=== PATIENT | female | born 1995 | race Caucasian/White ===

== ENCOUNTER 2024-02-02 15:30 | Outpatient (CLI) | payer OTHER, SELFPAY | END 2024-02-02 15:31 | disposition home or self-care (01) | PROVIDERS: Visit Provider Registered Nurse | DX: Z34.90 Encounter for supervision of normal pregnancy, unspecified, unspecified trimester (principal) | CPT/HCPCS: 86592 ==

== ENCOUNTER 2024-03-03 13:51 | Outpatient (CLI) | payer OTHER, SELFPAY ==
--- NOTE | 2024-03-03 14:00 | CRLHL7_ITS ---
For Patients: As a result of the Century Cures Act, medical imaging exams and procedure reports are released immediately into your electronic medical record. You may view this report before your referring provider. If you have questions, please contact your health care provider. INDICATION: transfer of patient care. check growth TECHNIQUE: Real time pettit scale imaging of the fetus was performed. COMPARISON: None FINDINGS: Sonographic imaging demonstrates a single living intrauterine gestation. Fetus demonstrates a regular cardiac rate of 134 beats per minute. Fetus has a vertex position. The placenta lies posteriorly without evidence of placenta previa. Amniotic fluid volume appears normal and there is a single deepest pocket of 4.2 cm. The estimated weight is 2046gm which lies at the 51st %. BPD 65th percentile. HC 11th percentile. AC is 37th percentile. FL 81st percentile. The fetus was active. Absent breathing movements. There was normal flexion and extension of the trunk and extremities. IMPRESSION: Biophysical profile 01/07. Sonographic gestational age 32 weeks 6 days and sonographic due date 04/22/2024. Good correlation with dates. Estimated weight at 51st percentile. Abdominal circumference 37th percentile. Dictated by Jeffery Taylor MD @ 03/03/2024 10:34:43 PM (Electronically Signed)
== END 2024-03-03 13:52 | disposition home or self-care (01) ==
LOC: US 13:52
PROVIDERS: Visit Provider Midwife
DX: Z36.89 Encounter for other specified antenatal screening (principal); O09.33 Supervision of pregnancy with insufficient antenatal care, third trimester; Z3A.33 33 weeks gestation of pregnancy
CPT/HCPCS: 76816; 76819

== ENCOUNTER 2024-03-31 15:01 | Outpatient (CLI) | payer OTHER, SELFPAY ==
[2024-04-01 11:56] LABS: Strep B DNA Probe POSITIVE (Negative)
[2024-04-01 12:40] LABS: Strep B Susceptibility Needed? No
== END 2024-03-31 15:02 | disposition home or self-care (01) ==
LOC: NFLDREF 15:01
PROVIDERS: Visit Provider Midwife
DX: Z34.93 Encounter for supervision of normal pregnancy, unspecified, third trimester (principal); Z3A.36 36 weeks gestation of pregnancy
CPT/HCPCS: 87081; 87653

== ENCOUNTER 2024-04-07 13:50 | Outpatient (CLI) | payer OTHER, SELFPAY ==
--- NOTE | 2024-04-07 14:00 | CRLHL7_ITS ---
For Patients: As a result of the Century Cures Act, medical imaging exams and procedure reports are released immediately into your electronic medical record. You may view this report before your referring provider. If you have questions, please contact your health care provider. ULTRASOUND OB/BPP INDICATION: screen. TECHNIQUE: OB ultrasound transabdominal. SHANTHI by LMP: 04/25/2024. GA: 37 w, 3 d. Single. Comparison: Ultrasound 03/03/2024. CERVIX: Not visualized. POSITIONING: Vertex. BIOPHYSICAL PROFILE: Total score: 8. Gross body movements: 2. tone: 2. Respiratory activity: 2. Amniotic fluid: 2. (SDP N: Increase 2 x 1 cm) PLACENTA: Technique: Transabdominal. PLACENTA POSITION: Posterior. DOPPLER: heart rate: 157 bpm. Biometry: BPD: 9.1 cm. 36 w, 5 d, 48 percent. HC: 32.8 cm. 37 w, 1 d, 22 percent. AC: 33.1 cm. 37 w, 0 d, 54 percent. FL: 7.3 cm. 37 w, 3 d, 50 percent. FL/AC ratio: 22.07 percent. HC/AC ratio: 0.99 EFW: 3117 g. Weight: 6 lbs, 14 oz. age by this US: 37 w, 1 d. SHANTHI by this US: 04/27/2024. Percentile by SHANTHI: 50 percent. IMPRESSION: 1. Single live intrauterine gestation at 37 weeks 1 day. SHANTHI of 04/27/2024. Estimated weight 3117 g which lies at the 50th percentile. 2. Biophysical profile score 8/8. Samantha Valentine M.D. Diagnostic/Breast Radiologist [email or web address] KARTHIK/Dictated by: Samantha Valentine MD @ 04/07/2024 8:26:00 PM (Electronically Signed)
== END 2024-04-07 13:51 | disposition home or self-care (01) ==
LOC: US 13:50
PROVIDERS: Visit Provider Midwife
DX: Z36.89 Encounter for other specified antenatal screening (principal); Z3A.37 37 weeks gestation of pregnancy
CPT/HCPCS: 76816; 76819

== ENCOUNTER 2024-05-01 00:51 | Inpatient (IN) | payer OTHER, SELFPAY ==
[2024-04-30 22:45] VITALS: BP 124/77; PULSE 63; RESP 16; TEMP 36.6
[2024-05-01] VITALS (66 sets, daily range): BP systolic 59–141; BP diastolic 35–79; PULSE 59–187; RESP 12–24; TEMP 36.4–37.9; O2SAT 73–100; BMI 44.6
--- NOTE | 2024-05-01 01:22 | P.LDBA_ITS ---
Subjective History of Present Illness Date Seen: 05/01/24 Narrative: Janki is a 29 yo at 40 6/7 weeks gestation being admitted to Labor and Delivery for spontaneous onset of labor. She reports her contractions started the night before last, irregular and she was able to sleep them. She was then awoken with contractions at 0430ish am. The progressively got more intense and closer together throughout the day. She was able to rest through periods of them but this afternoon they became more regular and difficult to cope with at home. She presented to triage around 2230 and was 2/40/-2. She did the labor warm up and made significant change after 2 hours. She denies any bleeding or leaking of fluid. She endorses movement. She plans to be unmedicated for as long as she can cope. She is supported in labor by her , Blair. Her full history and physical was dictated by ASHLEY Pardo on 04/07/2025. Please see this for details. Specific Issues/Plans G1 : Blair H&P completed 04/07/2024 by Mitchel RAMIREZ FOREIGN STUDENT ADVISER Transfer of care from [facility]. #GBS Positive-plans to treat # History of PCOS and infertility. Conceived with letrozole. # Recommend she continue with her daily low-dose aspirin d/t BMI and 1st . # Obesity. BMI estimated at 40.9 at start of . Offer Nutrition referral: Declines 03/10 Consider Anesthesia referral: patient declines, strongly encouraged 03/10 Weekly BPP and/or NST starting at 32 weeks: Scheduled Growth US between 32-36: 32 weeks, 51%ile testing form completed: Done Covid: Completed, not up-to-date with boosters. Recommend. Patient declines. TDAP: 02/16/2024 Labs 10/20/2023: blood type O positive, antibody screen negative, hemoglobin 13. 0, platelets 303, rubella positive, RPR:[], hepatitis B antibody negative, hepatitis-B antigen:[], HIV negative, Chlamydia gonorrhea both negative, urine culture with mixed microbiota, hepatitis-C negative, varicella positive. Pap smear 12/14/2022 ASCUS, negative HPV. Imagin09/20/2023: single IUP with crown-rump length measurements consistent with LMP and confirms EDC of 04/25/2024. 12/08/2023: Routine anatomy survey completed in no anomalies identified. No previa. OB - Problem Based A/P Additional Plan (1) Pain during labor: Status: Acute (2) Spontaneous onset of labor: Status: Acute (3) BMI greater than 40: Status: Acute (4) Obesity affecting : Status: Acute (5) 40 weeks gestation of : Status: Acute Plan ASSESSMENT:? 29 yo at 40 6/7 weeks gestation? complicated by:?Hx of PCOS and infertility, conceived on letrozole, Obesity with pre- BMI 40.9 Labor type: Spontaneous, Early labor? Category 1 FHR pattern.?? Labor complicated by: GBS? GBS positive? PLAN:? 1. Routine intrapartum cares as ordered. Continue with expectant management? 2. Monitoring per policy, intermittent okay, consider continuous at this time due to some occasional early decelerations.? 3. Considering unmedicated . Candidate for analgesia of choice, if desired.?? 4. Patient encouraged to reposition and ambulate to promote physiologic labor and .? 5. GBS prophylaxis initiated for GBS positive status. Will treat with antibiotics per protocol. 6. Anticipate ? Delivery/Labor/Induction Plan Plan: expectant management OB Result Labs Blood Type: O (+) positive OB Exam Physical Exam Vital signs: Temp Pulse Resp BP 97.9 F 63 16 124/77 04/30/24 22:45 04/30/24 22:45 04/30/24 22:45 04/30/24 22:45 Narrative: Vitals Reviewed Constitutional:? Alert and oriented x3 HEENT:? Normocephalic, atraumatic Neck:? Supple Lungs:? Clear to auscultation bilaterally Heart:? Regular rate and rhythm, no murmur, rub or gallop Abdomen:? Soft, nontender, and gravid. Vertex by Amos's, confirmed with cervical exam. Extremities:? No edema or erythema Cervix: 5 cm/70%/-1 station/vertex NST: 135 bpm/moderate variability/15x15 accelerations/early decelerations/contractions every 1-4 minutes Detailed Labor and Delivery Exam Patient Gravid: Yes
[2024-05-01] MEDS: AMPICILLIN 2 GM in 0.9 % SODIUM CHLORIDE Mini-bag 100 ML IVPB (01:24)
[2024-05-01] MEDS: LACTATED RINGERS 1000 ML 1,000 ML 125 ML IV ×3 (01:27→10:10)
[2024-05-01 01:56] LABS: Basophils Percent Auto 0.2 % (0.0-3.0); Eosinophils Percent Auto 0.2 % (0.0-7.0); Hematocrit 38.7 % (33.0-51.0); Immature Granulocytes Pct Auto 0.2 %; Lymphocytes Percent Auto 16.6 % (20-44); Mean Corpuscular HGB Conc 34 gm/dL (32-36); Mean Corpuscular Hemoglobin 31 pg (26-34); Mean Corpuscular Volume 92 fL (80-100); Monocytes Percent Auto 5.2 % (0.0-11.0); Neutrophils Percent Auto 77.6 % (42.0-72.0); Platelet Count* 217 K/uL (140-440); RDW Coefficient of Variation % 13.1 % (11.5-15.5); Red Blood Count 4.22 m/uL (4.00-5.20); White Blood Count* 12.44 K/uL (4.50-11.00)
[2024-05-01 02:01] LABS: Slide Review Reflex No
[2024-05-01] MEDS: AMPICILLIN 1 GM in 0.9 % SODIUM CHLORIDE Mini-bag 100 ML IVPB (05:06)
[2024-05-01] MEDS: OXYTOCIN 30 unit/500 ML in NS 30 UNIT/500 ML BAG 300 UNIT IVPB (07:10)
[2024-05-01] MEDS: miSOPROStoL 800 MCG/4 TABLET SUBLINGUAL (07:25)
[2024-05-01] MEDS: lidocaine HCL 2 % JELLY (TOP) STERILE 6 ML TOPICAL (07:29)
[2024-05-01] MEDS: TRANEXAMIC ACID 100 MG/ML INJ 1000 MG IV (07:32)
--- NOTE | 2024-05-01 07:35 | W.PM.VAGDE_ITS ---
Documented by User: Khadra Crabtree CNM 05/01/24 08:17 OB Procedure Vag Delivery Mother Details Mother Details: The patient is a 29 year-old, 1, now Para 1, admitted on 05/01/24 at 40 6/7 weeks gestation. : 1 Para: 1 Weeks Gestation: 40.6 Admission Date: 05/01/24 Additional Details Amniotic Membrane Status: SROM Amniotic Membrane Rupture Date: 05/01/24 Amniotic Membrane Rupture Time: 04:10 Amniotic Membrane Fluid Description: Clear Analgesia/Anesthesia Type: Local Waterbirth: No Pitcoin: Yes ([facility] only) Intrapartal Events: None Heart: heart tones during second stage were reassuring throughout with decelerations during contractions and slow return to baseline. Delivery Details Delivery Date: 05/01/24 Delivery Time: 07:09 Route of delivery: Infant Gender: Female Viability: Alive; Heart Rate Present Position at Delivery: OA Delivery Details: Patient was admitted for spontaneous onset of labor and progressed normally. SROM of clear fluid at 0410. She labored in many positions and started to pressure. On exam, a forebag was palpated with a small rim of anterior cervix, forebag ruptured with exam. Patient was then complete at 0629 and pushing at 0629. of a viable female at 0709 in position. Vertex delivered OA. No nuchal cord or shoulder. Body delivered easily and without incident. Infant passed to mothers abdomen with a vigorous cry. Cord was clamped and cut at > 5 minutes. APGARS were 8 at one minute and 9 at five minutes respectively. Mouth was bulb suctioned. Intact placenta with a 3 vessel cord delivered spontaneously at 0716. Fundus firm. Care assumed after delivery of placenta by ASHLEY Menard. 1st degree perineal laceration identified and repaired in typical fashion, two small anterior sulcus tears secured with interrupted due to bleeding repaired by ASHLEY Menard. QBL [ ] cc. Mother and baby stable; mother plans to breastfeed. Infant weight pending. 1 Minute Interval Total Score: 8 5 Minute Interval Total Score: 9 Additional Details Shoulder Dystocia: No Placenta Delivery Time: 07:16 Placental Delivery Description: Spontaneous Delivery repair: Vicryl Procedure Done: Global Laceration: Perineal - 1st Degree (with bilateral anterior small sulcus lacs) Blood Loss Measurement Type: IVONNE Olivarez Used: No Sponge/Need Count Correct: Yes Cord Vessel Description: 3 Vessels Event Summary Status: Mother and infant were stable after delivery. Disposition: floor Documented by User: Maia Menard CNM 05/01/24 15:59 OB Procedure Vag Delivery Delivery Details Delivery Details: Patient was admitted for spontaneous onset of labor and progressed normally. SROM of clear fluid at 0410. She labored in many positions and started to pressure. On exam, a forebag was palpated with a small rim of anterior cervix, forebag ruptured with exam. Patient was then complete at 0629 and pushing at 0629. of a viable female at 0709 in position. Vertex delivered OA. No nuchal cord or shoulder. Body delivered easily and without incident. p assed to mothers abdomen with a vigorous cry. Cord was clamped and cut at > 5 minutes. APGARS were 8 at one minute and 9 at five minutes respectively. Mouth was bulb suctioned. Intact placenta with a 3 vessel cord delivered spontaneously at 0716. Fundus firm. Care assumed after delivery of placenta by ASHLEY Menard. 1st degree perineal laceration identified and repaired in typical fashion, two small anterior sulcus tears bilaterally secured with interrupted due to bleeding repaired by ASHLEY Menard. After repair of these lacerations it was noted that QBL was around 1500. The labs had not yet been weighed to add to the QBL at that time. Bleeding was stable at this time but did seem to have increase with interruption to the vagina. Decision was made to place vaginal packing with 2 laps and encourage proximity of the lacerations to encourage hemostasis. VSS. OB consultation was considered but none were available at that time due to another emergency and bleeding had appeared to stabilize at that time. Frequent checks were made to evaluate for bleeding around the vaginal packing. Around 0900 I was called back into the room for decreased blood pressure and bleeding noted around the vaginal packing. The patient at that time was pale and diaphoretic with increase pulse and decreased blood pressure. Decision was made to initiate massive transfusion protocol and for immediate OB consultation. The OB's in the OR were consulted at this time and decision was made to call berta peters for hemorrhage with the knowledge that one of them would be able to scrub out of their current case momentarily. She was transported to the OR where to OB presented and assumed care. After the OR case the QBL 2985mL. Three units RBCs were transfused in the OR. The lacerations in the OR were noted as left sided sulcus deep vaginal sidewall, right sulcus was hemostatic and didn't require further repair but with a possible hematoma present, and a 2nd degree perineal laceration. See Dr. Downs and OR notes for further details. Mother plans to breastfeed. weight 7lb 11oz. Additional Details Blood Loss: 2,985 Laceration: Perineal - 2nd Degree (left sided sulcus deep vaginal sidewall, right sulcus with a possible hematoma present)
[2024-05-01] MEDS: LIDOCAINE 1 % PF 30 ML INJECTION (07:37)
[2024-05-01] MEDS: LACTATED RINGERS 1000 ML 1,000 ML IV (08:00)
[2024-05-01 08:53] LABS: Basophils Percent Auto 0.1 % (0.0-3.0); Hematocrit 34.8 % (33.0-51.0); Hemoglobin* 11.2 gm/dL (12.0-16.0); Immature Granulocytes Pct Auto 0.4 %; Mean Corpuscular HGB Conc 32 gm/dL (32-36); Mean Corpuscular Hemoglobin 31 pg (26-34); Mean Corpuscular Volume 96 fL (80-100); Monocytes Percent Auto 4.3 % (0.0-11.0); Neutrophils Percent Auto 87.2 % (42.0-72.0); Platelet Count* 279 K/uL (140-440); RDW Coefficient of Variation % 13.2 % (11.5-15.5); Red Blood Count 3.64 m/uL (4.00-5.20); White Blood Count* 24.27 K/uL (4.50-11.00)
[2024-05-01 08:55] LABS: Slide Review Reflex No
[2024-05-01] MEDS: PHENYLEPHRINE 100 MCG/ML SYRINGE IVP (09:10)
[2024-05-01 09:40] LABS: Basophils Percent Auto 0.1 % (0.0-3.0); Hematocrit 29.3 % (33.0-51.0); Hemoglobin* 9.2 gm/dL (12.0-16.0); Immature Granulocytes Pct Auto 0.9 %; Lymphocytes Percent Auto 9.3 % (20-44); Mean Corpuscular HGB Conc 31 gm/dL (32-36); Mean Corpuscular Hemoglobin 31 pg (26-34); Mean Corpuscular Volume 97 fL (80-100); Monocytes Percent Auto 5.1 % (0.0-11.0); Neutrophils Percent Auto 84.6 % (42.0-72.0); Platelet Count* 294 K/uL (140-440); RDW Coefficient of Variation % 13.4 % (11.5-15.5); Red Blood Count 3.01 m/uL (4.00-5.20)
[2024-05-01 09:43] LABS: White Blood Count* 28.57 K/uL (4.50-11.00)
[2024-05-01 09:45] LABS: Slide Review Reflex No
[2024-05-01] MEDS: OXYTOCIN 30 unit/500 ML in NS 30 UNIT/500 ML BAG 250 UNIT IVPB (10:07)
[2024-05-01 10:15] LABS: Prothrombin Time 14.6 Seconds
[2024-05-01 10:16] LABS: INR 1.07 (0.91-1.10); Partial Thromboplastin Time* 25 Seconds (23-33)
[2024-05-01 10:19] LABS: Fibrinogen* 425 mg/dL (200-450)
--- NOTE | 2024-05-01 10:39 | W.PM.GYNPROC ---
Procedure Note Time Seen by Provider: 10: Date of procedure: 05/01/24 Will [facility] bill your pro fee for this procedure?: Yes Pre-op diagnosis: hemorrhage Post-op diagnosis: hemorrhage Uterine atony Deep left vaginal sulcal laceration 2nd degree perineal laceration with vaginal extension Procedure: Exam under anesthesia, evacuation of intrauterine clots, manual sweep of the uterus, repair of left vaginal sulcus laceration, repair of second-degree perineal laceration Anesthesia: GETA Complications: None Surgeon: David Norwood MD Infant And Toddler Teacher: Nidia Godfrey Estimated blood loss (mL): 1,088 IV fluids (mL): 2,000 Urine Output (mL): 75 Pathology: none sent Condition: stable Disposition: floor Findings: Lower uterine segment atony, dilated with large clot burden on initial TAUS Thin, homogenous endometrial stripe on postprocedure TAUS Deep left vaginal sulcus laceration with active bleeding Second degree perineal laceration with small volume bleeding Procedure Description: Janki is a 29-year-old patient of the CNM service. I was assisting Dr. Godfrey (enterprise solutions architect Manager Personal) in a different emergency case, when we were notified of hemorrhage secondary to suspected vaginal laceration by Maia Menard CNM. She reported the patient had delivered about 2 hours prior, where lacerations were repaired and felt to be adequate and a vaginal packing was placed. She received 1 g of TXA and vaginal Cytotec at time of her initial repair. At time of notification of OB Service, she was noted to have return of bleeding with a QBL of nearly 2 L with preparations ongoing for planned transfusion of pRBCs. I was the best available sales executive insurance at the time of requested emergency consultation and thus scrubbed out. I requested Code Purple be initiated and that Janki be emergently transferred to an operating room. Requested stat type and screen, CBC, PT/INR, APTT and fibrinogen be drawn. On arrival to the operating room, I introduced myself to Janki and explained that I plan to proceed with a exam under anesthesia, repair of vaginal lacerations and proceed as indicated. Complete written consent could not be obtained due to emergent nature of the case, but she acknowledged the intended care and provided verbal consent. Decision was made to proceed with induction of general anesthesia given emergent nature of case and no existing epidural in place. She was positioned in dorsal lithotomy with Yellofin stirrups. Vaginal packing was removed, with the previously packed two laps confirmed to be removed. Numerous and large blood clots were noted subsequently, where we proceeded to an external prep. Decision was made to not prepped the vagina so as to not destabilize the existing clot burden until all necessary preparations were ongoing. A dose of 2 g Ancef was requested and administered. She was draped in the usual sterile fashion. A time-out was completed to verify correct patient and procedure. IV fluid resuscitation and a 1st transfusion of packed red blood cells was ongoing at start of procedure. Sterile byrne catheter was inserted. Transabdominal ultrasound was performed, revealing a thin and homogeneous endometrial stripe at the fundus and mid uterus. Lower uterine segment was noted to be dilated with large blood clot. Bimanual exam was performed to evacuate clots, then uterine sweep was performed throughout. No appreciable retained products of conception were removed. Bimanual massage was ongoing, where fundal uterine tone was excellent but there was some intermittent bogginess at the lower uterine segment. I did request a 2nd dose of 1 g IV TXA and administration of 0.2 mg IM Methergine. Uterine tone was noted to improve significantly. Repeat transabdominal ultrasound confirmed thin and homogeneous endometrial stripe throughout. Attention was then turned to the vagina and perineum. There was note of a right sided small hematoma/ecchymosis, with stitches in place from her prior laceration repair. This was monitored throughout time and noted to be stable and not increasing in size. There was a deep left vaginal sidewall laceration with active bleeding at the mid vagina. I started with a [id number] with 0 vicryl suture at this site, with improvement of active bleeding. Stitch was tagged and utilized to allow for better visualization, where I then proceeded with repair of the left vaginal laceration in a running, locking fashion with 0 vicryl. Significant improvement of hemostasis was noted. Attention was then turned to the 2nd degree perineal laceration with extension to the mid-vagina. I started repair with several interrupted 0 vicryl stitches for hemostasis and to reapproximate deep tissues. Prior to completion of the second degree laceration closure, I did request Dr. Godfrey to scrub in to run the cervix and reexamine the left side wall as these areas were difficult to visualize. Jennifer retractors were utilized to visualize the cervix, where rings forceps were utilized to gently grasp the cervix and run it circumferentially. No cervical laceration was identified. With the additional assistance, we re-examined the left vaginal side wall laceration where there was further separation of tissue proximal to site of my initial repair. Small volume bleeding was noted. This defect was closed in a running locking fashion with 0 vicryl starting at the apex and working until I reached the prior site of repair. Excellent hemostasis was noted throughout. The second degree vaginal laceration was finally closed in a running, locking fashion with 2-0 vicryl vaginally. A crown stitch was applied at the hymenal ring, and the perineal subcuticular tissue was reapproximated in a running fashion. The skin was then closed in a running subcuticular with the same stitch, tied just proximal to the hymenal ring. The entire field was examined and noted to be hemostatic. Excellent uterine tone was noted. A vaginal packing was inserted to apply pressure on the vaginal closures. Sponge and instrument count was correct. The patient was transferred to the recovery room in stable condition. Surgical debrief was completed. A total of 3u pRBCs were administered and by the time FFP was thawed/available, her bleeding was controlled and her initial coags returned within normal limits. Decision was made to hold on further transfusion of product, MTP was deactivated. She received 2L of IVF resuscitation in the OR and 250cc of 5% albumin. Total QBL prior to the OR 1897mL with additional 1088mL in the OR to a total of 2985mL. Subsequent care was resumed by enterprise solutions architect Manager Personal, Dr. Godfrey. She intends to remove the vaginal packing in 4-6 hours and trend labs.
--- NOTE | 2024-05-01 10:41 | W.ANESCHARGE ---
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
--- NOTE | 2024-05-01 10:51 | W.ANESCHARGE ---
Anesthesia Charges Start Date/Time Anesthesia Start Date: 05/01/24 Anesthesia Start Time: 09:18 Stop Date/Time Anesthesia Stop Date: 05/01/24 Anesthesia Stop Time: 10:37 Summary Emergency: MDA
[2024-05-01] MEDS: IBUPROFEN 600 MG TABLET PO ×2 (11:20→17:59)
--- NOTE | 2024-05-01 11:45 | SUR.OPER ---
BLOOD TRANSFUSION RECORDS ACCORDING TO ANESTHESIA RECORD: 1ST BAG BLOOD HUNG AT 0932; SECOND BAG HUNG AT 0936; THIRD BAG HUNG AT 1002. ALBUMIN 250CC 5% HUNG AT 0945 PER PROCUREMENT COST COORDINATOR
[2024-05-01 15:33] LABS: Hepatitis B Surface Antigen* Negative (Negative)
--- NOTE | 2024-05-01 15:51 | P.OBPN_ITS ---
OB - PN:Subj Subjective Date Seen: 05/01/24 Narrative: Janki has been improving since the OR. Her VS have remained stable and bleeding has been minimal. She is awake, alert with good color and no diaphoresis. She was sitting up in bed and eating on my arrival. Her vaginal packing was removed at this time and was light red with minimal bleeding present. No bleeding noted with fundal massage after its removal with fundus firm U/2. She tolerated the removal well. OB - PN: Obj Exam Physical Exam: Vital signs: Temp Pulse Resp BP Pulse Ox O2 Del Method 98.3 F 101 H 18 93/68 98 Room Air 05/01/24 13:36 05/01/24 13:36 05/01/24 13:36 05/01/24 13:36 05/01/24 13:36 05/01/24 10:58 OB - PN: Obj Data Labs Labs: Laboratory Results - last 24 hr 05/01/24 05/01/24 05/01/24 01:25 08:39 09:25 WBC 12.44 H 24.27 H 28.57 H* RBC 4.22 3.64 L 3.01 L Hgb 13.0 11.2 L 9.2 L Hct 38.7 34.8 29.3 L MCV 92 96 97 MCH 31 31 31 MCHC 34 32 31 L RDW Coeff of Sadia 13.1 13.2 13.4 Plt Count 217 279 294 Neut % (Auto) 77.6 H 87.2 H 84.6 H Lymph % (Auto) 16.6 L 8.0 L 9.3 L [place] % (Auto) 5.2 4.3 5.1 Eos % (Auto) 0.2 0.0 0.0 Baso % (Auto) 0.2 0.1 0.1 Neut # (Auto) 9.70 H 21.20 H 24.20 H Lymph # (Auto) 2.10 1.90 2.70 [place] # (Auto) 0.60 1.00 H 1.50 H Eos # (Auto) 0.00 0.00 0.00 Baso # (Auto) 0.00 0.00 0.00 Abs Immat Gran (auto) 0.00 0.10 0.30 Imm/Tot Granulo (auto) 0.2 0.4 0.9 INR 1.07 APTT 25 Fibrinogen 425 Hep Bs Antigen Cancelled Hep Bs Antibody Cancelled Blood Type O Positive Antibody Screen NEGATIVE Crossmatch ([facility]) See Detail 05/01/24 09:52 WBC RBC Hgb Hct MCV MCH MCHC RDW Coeff of Sadia Plt Count Neut % (Auto) Lymph % (Auto) [place] % (Auto) Eos % (Auto) Baso % (Auto) Neut # (Auto) Lymph # (Auto) [place] # (Auto) Eos # (Auto) Baso # (Auto) Abs Immat Gran (auto) Imm/Tot Granulo (auto) INR APTT Fibrinogen Hep Bs Antigen Negative Hep Bs Antibody Blood Type Antibody Screen Crossmatch ([facility]) OB - PN: A/P Delivery Assessment and Plan (1) Pain during labor: Status: Acute (2) Spontaneous onset of labor: Status: Acute (3) BMI greater than 40: Status: Acute (4) Obesity affecting : Status: Acute (5) 40 weeks gestation of : Status: Acute
[2024-05-01 15:52] LABS: Hepatitis B Surface Antibody* Negative (Negative)
[2024-05-01 17:24] LABS: Hematocrit 28.7 % (33.0-51.0); Hemoglobin* 9.4 gm/dL (12.0-16.0); Mean Corpuscular HGB Conc 33 gm/dL (32-36); Mean Corpuscular Hemoglobin 29 pg (26-34); Mean Corpuscular Volume 89 fL (80-100); Platelet Count* 160 K/uL (140-440); Red Blood Count 3.24 m/uL (4.00-5.20); White Blood Count* 19.59 K/uL (4.50-11.00)
[2024-05-01 17:27] LABS: Slide Review Reflex No
[2024-05-01 17:38] LABS: INR 1.01 (0.91-1.10); Prothrombin Time 13.9 Seconds
[2024-05-01 17:40] LABS: Fibrinogen* 432 mg/dL (200-450); Partial Thromboplastin Time* 26 Seconds (23-33)
[2024-05-01] MEDS: DOCUSATE SODIUM 100 MG CAPSULE PO (17:59)
[2024-05-02] VITALS (11 sets, daily range): BP systolic 91–113; BP diastolic 57–74; PULSE 89–105; RESP 16–18; TEMP 36.6–36.9; O2SAT 97–99
[2024-05-02] MEDS: IBUPROFEN 600 MG TABLET PO ×3 (00:37→19:40)
[2024-05-02 06:44] LABS: Hemoglobin* 7.4 gm/dL (12.0-16.0)
[2024-05-02 08:08] LABS: INR 0.95 (0.91-1.10); Prothrombin Time 13.2 Seconds
[2024-05-02 08:09] LABS: Fibrinogen* 462 mg/dL (200-450); Partial Thromboplastin Time* 27 Seconds (23-33)
--- NOTE | 2024-05-02 08:31 | P.OBPN_ITS ---
OB - PN:Subj Subjective Date Seen: 05/02/24 Patient comments OB post-: pain well controlled, tolerating diet and flatus present infant status: and doing well [place] feeding status: exclusively Narrative: Janki is a 29 y.o. G 1 P 1 who was admitted to [facility] for spontaneous onset of labor. ?She had a NVD that was complicated by complicated laceration with pp hemorrhage related to laceration bleeding. The patient feels well this morning. She has received 3 units of RBC's ?The pain is well controlled with current medications. ?She has no new complaints. ?She is breast feeding and reports things are going well. the patient has done well.? Vitals have been stable.? She has remained afebrile.? Has a good appetite, is tolerating a general diet. ?She is voiding without difficulty.? She is passing gas and has not had a bowel movement.? She is ambulating and denies any dizziness.? Has small amount of rubra lochia. Problems: Anemia plan: Discharge home with baby. Follow up in 2 weeks and 6 weeks. , may see if needed Anemia; Hgb 7.4. Administer an additional 1 unit of RBC this morning. Coags pending per Dr. Storm recommendation. OB - PN: Obj Exam Physical Exam: Vital signs: Temp Pulse Resp BP Pulse Ox O2 Del Method 98.4 F 90 18 104/71 98 Room Air 05/02/24 04:22 05/02/24 08:03 05/02/24 08:03 05/02/24 08:03 05/02/24 08:03 05/02/24 08:03 Narrative: GENERAL APPEARANCE:? normal affect, alert, no distress, pale MOOD:? appropriate CHEST:? clear to auscultation HEART:? regular rate and rhythm ABDOMEN:? soft, non-tender the uterine fundus is At Umbilicus, Midline and is appropriate for the stage of recovery. PERINEUM:? mild edema of the perineum, there is a Perineal Laceration, that is healing well. EXTREMITIES:? normal and no edema OB - PN: Obj Data Labs Labs: Laboratory Results - last 24 hr 05/01/24 05/01/24 05/01/24 01:25 08:39 09:25 WBC 24.27 H 28.57 H* RBC 3.64 L 3.01 L Hgb 11.2 L 9.2 L Hct 34.8 29.3 L MCV 96 97 MCH 31 31 MCHC 32 31 L RDW Coeff of Sadia 13.2 13.4 Plt Count 279 294 Neut % (Auto) 87.2 H 84.6 H Lymph % (Auto) 8.0 L 9.3 L [place] % (Auto) 4.3 5.1 Eos % (Auto) 0.0 0.0 Baso % (Auto) 0.1 0.1 Neut # (Auto) 21.20 H 24.20 H Lymph # (Auto) 1.90 2.70 [place] # (Auto) 1.00 H 1.50 H Eos # (Auto) 0.00 0.00 Baso # (Auto) 0.00 0.00 Abs Immat Gran (auto) 0.10 0.30 Imm/Tot Granulo (auto) 0.4 0.9 INR 1.07 APTT 25 Fibrinogen 425 Hep Bs Antigen Cancelled Hep Bs Antibody Cancelled Blood Type O Positive Antibody Screen NEGATIVE Crossmatch ([facility]) See Detail 05/01/24 05/01/24 05/02/24 09:52 17:17 06:17 WBC 19.59 H RBC 3.24 L Hgb 9.4 L 7.4 L* Hct 28.7 L MCV 89 MCH 29 MCHC 33 RDW Coeff of Sadia Plt Count 160 Neut % (Auto) Lymph % (Auto) [place] % (Auto) Eos % (Auto) Baso % (Auto) Neut # (Auto) Lymph # (Auto) [place] # (Auto) Eos # (Auto) Baso # (Auto) Abs Immat Gran (auto) Imm/Tot Granulo (auto) INR 1.01 APTT 26 Fibrinogen 432 Hep Bs Antigen Negative Hep Bs Antibody Negative Blood Type Antibody Screen Crossmatch ([facility]) 05/02/24 07:47 WBC RBC Hgb Hct MCV MCH MCHC RDW Coeff of Sadia Plt Count Neut % (Auto) Lymph % (Auto) [place] % (Auto) Eos % (Auto) Baso % (Auto) Neut # (Auto) Lymph # (Auto) [place] # (Auto) Eos # (Auto) Baso # (Auto) Abs Immat Gran (auto) Imm/Tot Granulo (auto) INR 0.95 APTT 27 Fibrinogen 462 H Hep Bs Antigen Hep Bs Antibody Blood Type Antibody Screen Crossmatch ([facility]) OB - PN: A/P Delivery Assessment and Plan (1) care and examination immediately after delivery: Status: Acute (2) BMI greater than 40: Status: Acute (3) Anemia due to acute blood loss: Status: Acute (4) Lactating mother: Status: Acute Plan Comments: plan: Routine care. , may see if needed Anemia; Hgb 7.4. Administer an additional 1 unit of RBC this morning. Coags pending per Dr. Storm recommendation.
[2024-05-02] MEDS: DOCUSATE SODIUM 100 MG CAPSULE PO (09:16)
[2024-05-02 20:04] LABS: Hepatitis B Core Antibody, IgM Negative (Negative)
[2024-05-02 23:01] LABS: Rapid Plasma Reagin (RPR) Non Reactive (Non Reactive)
[2024-05-03 00:51] VITALS: BP 103/66; PULSE 93; RESP 16; TEMP 36.7; O2SAT 97
[2024-05-03] MEDS: IBUPROFEN 600 MG TABLET PO ×3 (02:58→15:20)
[2024-05-03 03:53] VITALS: BP 116/78; PULSE 93; RESP 18; TEMP 36.4; O2SAT 98
[2024-05-03 08:30] VITALS: BP 97/64; PULSE 83; RESP 16; TEMP 37; O2SAT 97
[2024-05-03 08:31] LABS: Basophils Absolute Auto 0.02 K/uL (0.00-0.30); Basophils Percent Auto 0.2 % (0.0-3.0); Eosinophils Absolute Auto 0.08 K/uL (0.00-0.50); Eosinophils Percent Auto 0.9 % (0.0-7.0); Hematocrit 22.3 % (33.0-51.0); Immature Granulocytes Abs Auto 0.08 K/uL (0.00-0.30); Immature Granulocytes Pct Auto 0.9 %; Lymphocytes Absolute Auto 1.88 K/uL (0.90-2.90); Lymphocytes Percent Auto 20.7 % (20-44); Mean Corpuscular HGB Conc 32 gm/dL (32-36); Mean Corpuscular Hemoglobin 29 pg (26-34); Mean Corpuscular Volume 90 fL (80-100); Neutrophils Absolute Auto 6.49 K/uL (1.7-7.0); Neutrophils Percent Auto 71.3 % (42.0-72.0); Platelet Count* 125 K/uL (140-440); RDW Coefficient of Variation % 16.6 % (11.5-15.5); Red Blood Count 2.47 m/uL (4.00-5.20)
[2024-05-03 08:37] LABS: Hemoglobin* 7.2 gm/dL (12.0-16.0)
[2024-05-03] MEDS: DOCUSATE SODIUM 100 MG CAPSULE PO (08:45)
--- NOTE | 2024-05-03 08:51 | CRLHL7_ITS ---
For Patients: As a result of the Cures Act, medical imaging exams and procedure reports are released immediately into your electronic medical record. You may view this report before your referring provider. If you have questions, please contact your health care provider. INDICATION: Extensive vaginal laceration. Possible retroperitoneal hematoma. TECHNIQUE: CT abdomen and pelvis acquired with 132 cc of Isovue 370 IV contrast. COMPARISON: None. FINDINGS: Lower chest: Unremarkable. Liver: Unremarkable. Spleen: Unremarkable. Pancreas: Unremarkable. Gallbladder and bile ducts: Cholelithiasis. The gallbladder is otherwise unremarkable. No biliary ductal dilatation. Kidneys: Unremarkable. Adrenal glands: Unremarkable. GI tract: No obstruction or focal inflammatory changes. Normal appendix. No free air or free fluid. No acute retroperitoneal hematoma. Lymph nodes: No pathologic lymphadenopathy. Vascular structures: Unremarkable. Pelvic Organs: Enlarged mildly heterogeneous uterus suggesting state. Adnexal regions as imaged are unremarkable. Gas in the bladder may be related to recent instrumentation. No discrete perineal hematoma. Bones: No acute or suspicious osseous abnormality. IMPRESSION: 1. No acute intra-abdominal or pelvic abnormality. Specifically, no evidence of retroperitoneal hemorrhage. 2. Enlarged heterogeneous uterus suggesting state. 3. Gas in the bladder may be related to recent instrumentation. 4. Cholelithiasis. Dictated by Pankaj Weathers MD @ 05/03/2024 11:33:55 AM Please note that all CT scans at this facility use dose modulation, iterative reconstruction, and/or weight-based dosing when appropriate to reduce radiation dose to as low as reasonably achievable. Dictated by: Pankaj Weathers MD @ 05/03/2024 11:34:12 (Electronically Signed)
[2024-05-03 12:45] VITALS: BP 110/75; PULSE 97; RESP 16; O2SAT 97
--- NOTE | 2024-05-03 12:58 | PM.OBDSVD1 ---
DS: Providers Provider Date Seen: 05/03/24 Date of admission: 05/01/24 00:51 Primary care physician: Not a Local Provider Admitting Clinician: Khadra Crabtree CNM Attending Physician on discharge: Khadra Crabtree CNM DS: Diagnosis Discharge Diagnosis (1) care and examination immediately after delivery: Status: Acute (2) Lactating mother: Status: Acute (3) Anemia due to acute blood loss: Status: Acute (4) High vaginal laceration during delivery: Status: Acute Exam Narrative: Exam Narrative: GENERAL APPEARANCE:? normal affect, alert, no distress MOOD:? appropriate CHEST:? clear to auscultation HEART:? regular rate and rhythm ABDOMEN:? soft, non-tender the uterine fundus is at Umbilicus, Midline and is appropriate for the stage of recovery. PERINEUM:? mild edema of the perineum. EXTREMITIES:? normal and trace edema Const: Vital Signs, click to edit/add: Vital Signs - 24 hr 05/02/24 13:00 05/02/24 13:29 05/02/24 13:50 Temperature 98.2 F 97.9 F 98.0 F Pulse Rate 89 99 90 Pulse Rate [Pulse Oximeter] Respiratory Rate 17 17 17 Blood Pressure 99/64 103/68 108/70 Blood Pressure [Le ft Arm] Pulse Oximetry 99 98 98 Oxygen Delivery Me thod 05/02/24 14:50 05/02/24 19:38 05/03/24 00:51 Temperature 98.5 F 98.0 F Pulse Rate 100 Pulse Rate [Pulse Oximeter] 105 H 93 Respiratory Rate 16 18 16 Blood Pressure 113/74 Blood Pressure [Le ft Arm] 101/62 103/66 Pulse Oximetry 98 99 97 Oxygen Delivery Me thod Room Air Room Air 05/03/24 03:53 05/03/24 08:30 05/03/24 12:45 Temperature 97.6 F 98.6 F Pulse Rate Pulse Rate [Pulse Oximeter] 93 83 97 Respiratory Rate 18 16 16 Blood Pressure Blood Pressure [Le ft Arm] 116/78 97/64 110/75 Pulse Oximetry 98 97 97 Oxygen Delivery Me thod Room Air Room Air Room Air Documenting provider has reviewed patient's vital signs: yes OB - DS: Summary Hospital Course Hospital Course: Janki is a 29 y.o. G 1 P 1 who was admitted to [facility] for spontaneous onset of labor. ?She had a NVD that was complicated by complex laceration repaired by in the OR. The patient feels well. ?The pain is well controlled with current medications. ?She has no new complaints. ?She is breast feeding and reports things are going okay. the patient has done well.? Vitals have been stable.? She has remained afebrile.? Has a good appetite, is tolerating a general diet. ?She is voiding without difficulty.? She is passing gas and has not had a bowel movement.? She is ambulating and denies any dizziness.? Has small amount of rubra lochia. Her hemoglobin was 7.4 yesterday. She had received 3 units of RBC prior to this and 1 additional unit of RBC after. Her hemoglobin this morning is 7.2. Consulted with Dr. Norwood who recommended a CT to confirm there was not a vaginal hematoma due ot high vaginal laceration and hemoglobin. Problems: Anemia due to acute blood loss plan: Discharge home with baby. Follow up in 2 weeks and 6 weeks. , may see if needed Hgb 7.2. 4 units RBC given previously, IV iron administered today. Peripartum Data delivery method: Vaginal Laceration description: Perineal - 2nd Degree (With deep Left anterior sulcus/vaginal wall repaired in OR) Procedures: Procedures Operation Date: 05/01/24 08:55 Actual Procedure Side Surgeon p Exam under Anesthesia, Evacuation of Lower Uterine Segment Blood Clots, Manual Sweep of Uterus, Left Vagina Sulcal Repair and Second Degree Laceration Repair Shakira Norwood MD complications: transfusion (x4 units RBC) Infant Gender: Female Infant Discharge Plan: Home Status at Discharge Functional status at discharge: independent ambulation Overall status at discharge: patient is progressing back to baseline Time Spent with Patient Time attestation: Total time spent providing and/or coordinating discharge services: Time spent: Less than 30 minutes Discharge Plan Discharge Disposition: Home, Self-Care Date of Admission: 05/01/24 00:51 Attending Provider on Discharge: Khadra Crabtree Primary Care Provider: Provider,Not a Local Condition: Stable Anticipated Discharge Date/Time: 05/03/24 14:00 Discharge Medications: New docusate sodium 100 mg Capsule 100 mg PO DAILY Qty: 90 0RF ibuprofen 600 mg Tablet 600 mg PO Q6H PRNQty: 60 0RF ferrous sulfate 325 mg (65 mg iron) tablet,delayed release (DR/EC) 325 mg PO Q OTHER DAY Qty: 60 0RF Rx Instructions: Start taking 2 weeks following IV administration on 05/17. 1 tab every other day. acetaminophen 500 mg Tablet 1,000 mg PO Q6H PRNQty: 0 0RF Continued DHA 200 mg capsule 200 mg PO DAILY Discontinued aspirin [Adult Low Dose Aspirin] 81 mg tablet,delayed release (DR/EC) 81 mg PO QDAY Discharge Orders: Discharge Order (Routine); Ordered 05/03/24 Ordered By: Khadra Crabtree Patient Education: Iron Sucrose (By injection), OB Over the Counter Medication Information, OB Vaginal/Breast Feeding Additional Instructions: Discharge instructions were reviewed with the patient including signs and symptoms of infection and home going medications Nothing vaginally for 6 weeks: no tampons or intercourse Off Work or School for 6 weeks 2-week visit: discuss infant feeding concerns, review control options and screen for anxiety/depression. 6-week visit for an annual exam. consultation services are available to all mothers and babies for the first year after delivery.? To make an appointment, please call [phone]. Activity Level: Activity as Tolerated Discharge Diet: Regular Follow Up Appointments: [facility] [Provider Group] Forms: MyHealth Info Instructions DS:Data Additional Comments Additional comments: Pelvic CT IMPRESSION: 1. No acute intra-abdominal or pelvic abnormality. Specifically, no evidence of retroperitoneal hemorrhage. 2. Enlarged heterogeneous uterus suggesting state. 3. Gas in the bladder may be related to recent instrumentation. 4. Cholelithiasis. Dictated by Pankaj Weathers MD @ 05/03/2024 11:33:55 AM
[2024-05-03] MEDS: IRON SUCROSE COMPLEX 200 MG in 0.9 % SODIUM CHLORIDE 100 ml 100 ML 440 MG IVPB (13:16)
[2024-05-03 14:14] VITALS: BP 112/77; PULSE 89; RESP 16; TEMP 36.8; O2SAT 99
[2024-05-03 16:30] LABS: Slide Review Reflex No
== END 2024-05-03 15:35 | disposition home or self-care (01) | DRG 806 ==
LOC: OB OUT 00:51 → OB 08:22
PROVIDERS: Advanced Practice Midwife; Obstetrics & Gynecology; Admitting Provider Advanced Practice Midwife; Visit Provider Advanced Practice Midwife
PROC: 0UQG0ZZ Repair Vagina, Open Approach (ICD-10-PCS; principal; 2024-05-01 08:45)
DX: O99.824 Streptococcus B carrier state complicating childbirth (principal); D62 Acute posthemorrhagic anemia; Z37.0 Single live birth; O72.1 Other immediate postpartum hemorrhage; O90.81 Anemia of the puerperium; O71.4 Obstetric high vaginal laceration alone; O99.214 Obesity complicating childbirth; O48.0 Post-term pregnancy; Z3A.40 40 weeks gestation of pregnancy
CPT/HCPCS: 00940; 36415; 36430; 51701; 74177; 76998; 85018; 85025; 85027; 85384; 85610; 85730; 86592; 86705; 86706; 86850; 86900; 86901; 86922; 87340; 99140; G0463; A9270; J0290; J0330; J1100; J1756; J2001; J2210; J2371; J2405; J2704; J3490; J7120; P9016; Q9967

== ENCOUNTER 2024-05-08 10:29 | Outpatient (CLI) | payer OTHER, SELFPAY ==
--- NOTE | 2024-05-08 12:09 | P.LACCB_ITS ---
Consult Note - Mom Date of Visit Date of visit: 05/08/24 Reason for consultation: Assistance Needed (babe not latching) Visit Code: Visit Patient's Information Phone number: [phone] Para: 1 Allergies No Known Drug Allergies Allergy (Verified 05/03/24 10:41) Mother's medical history: Difficulty conceiving and Post hemorrhage Mother's Medical History: Medical History (Updated 05/06/24 @ 00:00 by Khanh Stevenson) Infertility Work Plans: Return to work at 8 weeks Delivery Information Delivery type: Vaginal Gestational Age: 40w 6d Weight: 3.459 kg Discharge Weight: 3.414 kg Percentage weight loss: 3.49 Baby's Information Baby's Age at Visit: 7 days Baby's Provider or Clinic: [facility] Jaundice: No Past Experience Past Experience: No Current Frequency of Day Feedings: every 3 hours, needs to be awakened for feeding Frequency of Night Feedings: every 3 hours Both Breasts: No (not latching) Goals: 1 year Pumping Pumping: Yes Quantity Pumped: every 3 hours, getting 45 ml/session now R>L Supplementing EBM Supplement: Yes (brian taking about 45 ml/feed) Formula Supplement: No Baby Elimination Number of Wet Diapers a Day: every feeding Number of BM a Day: 4/day, yellow and seedy Breast/Nipple Condition Breast Information: Breasts are symmetrical with rounded lower quadrants, intramammary distance is less than 1.5 inches. No erythema. Nipples are supple, everted prior to feeding. Breast Shape: Round Engorgement: Yes Interventions for Engorgement: Warm Pack Maternal Nipple Condition - Left: Short Maternal Nipple Condition - Right: Short Sore Nipples: No Baby Assessment Skin: Normal Tongue/frenulum: Normal/elastic Palate: Average and Wide Lips: Relaxed Jaw Alignment: Symmetrical Mucosa: [place], moist Onsite Observation Pre-Feed weight: 3.38 kg Position: Cross cradle and Football Attachment/latch-on achieved: Used supplement at breast, With nipple shield and Not achieved Pre-Nursing Left Nipple: Within Normal Limits Pre-Nursing Right Nipple: Within Normal Limits Assessments/Interventions Assessments/Interventions: Brian has not latched to the breast for a feeding since discharge from the hospital 5 days ago; Mom has tried both with and without the nipple shield. Has also tried with the SNS behind the nipple shield and babe not willing/interested. Mom is currently pumping every 3 hours to bring in her milk and maintain her supply. At this time, she is keeping up with baby's needs. Her desire is to be able to breastfeed her baby now and do a combination of breast and bottle when she returns to work in 7 weeks. Mom had a hemorrhage after delivery, required surgical intervention, she lost 3L of blood. Baby did not get to nurse in the early hours after and had a hard time latching to the breast while mom was here in the hospital. observation: Worked with mom and baby to try and latch. Attempted both with and without nipple shield, attempted in football and cross cradle hold, attempted both left and right breast. Babe will either sit with mom's nipple in her mouth or suck 2-3 times and then cry and pull off. Worked with mom on expressing drops of colostrum to entice baby, breast compression to get baby more milk, SNS behind the shield and baby just lets milk flow out of her mouth. Multiple attempts of a breast sandwich will not get baby to latch; discussed with mom bringing baby out of the nursing position, calming her down and then trying again. All with no success at getting baby to latch. Education provided: Early feeding cues to maximize timing of latching, Asymmetric latch technique for wide/deep latch to increase milk, Transfer for baby and increase comfort for mom, Supply/demand nature of milk supply, Need for frequent stimulation/milk removal, Hand expression, Alternative feeding methods (SNS, cup, finger feeding, bottling), Use of nipple shield, Pumping for milk management and Other (Role of skin to skin in getting baby to the breast) Handouts Provided: Your Guide to Handbook, especially for asymmetric latch videos and positioning [employer] Cycle pumping handout Feeding Plan: Breastfeed attempts as often as desired, recommend at least twice a day using techniques discussed here Pump both breasts for: 20 if baby won't latch for feeding to build and maintain supply. minutes after each feeding; a full 20 minutes if pumping instead of sandhya stfeeding Feed baby 2-3 oz of pumped milk every 2-3 hours based on her cues; discussed increased calorie needs now that baby is older as seen in no weight gain in last 3 days. Baby is ready for larger volume. Use paced bottle feeding to help maintain slower feedings and closer to to help baby acclimate to . Early feeding cues important when trying to latch baby to the breast. Skin to skin at least 2 times a day, especially prior to a attempt, to accustom baby to being at the breast/chest. Hand on pumping may result in more milk than pumping alone. Breast shells worn 20-30 min prior to attempt may help nipples keke more for feedings Follow-Up Suggested follow up: Appointment as needed Recommend baby be seen by provider for:: as scheduled for 2 week check next week Time Spent Time spent with patient (min): 90 (Time spent reviewing EMR as well as face to face with patient, and ) Meds Home Medications and Allergies Home Medications ?Medication ?Instructions ?Recorded ?Confirmed ?Type docosahexaenoic acid 200 mg 200 mg PO DAILY 02/02/24 05/01/24 History capsule ( DHA) Allergies Allergy/AdvReac Type Severity Reaction Status Date / Time No Known Drug Allergies Allergy Verified 05/03/24 10:41
== END 2024-05-08 10:30 | disposition home or self-care (01) ==
PROVIDERS: Visit Provider Obstetrics & Gynecology
DX: Z39.1 Encounter for care and examination of lactating mother (principal)
CPT/HCPCS: G0463

== ENCOUNTER 2024-06-13 14:17 | Outpatient (CLI) | payer OTHER, SELFPAY ==
[2024-06-16 02:34] LABS: HPV Source Cervix; HPV, High Risk by TMA Not Detected
== END 2024-06-13 14:18 | disposition home or self-care (01) ==
PROVIDERS: Visit Provider Advanced Practice Midwife
DX: Z39.2 Encounter for routine postpartum follow-up (principal); Z12.4 Encounter for screening for malignant neoplasm of cervix; Z87.59 Personal history of other complications of pregnancy, childbirth and the puerperium
CPT/HCPCS: 87624; 87625; 88141; 88142